=== PATIENT | female | born 1955 | race Caucasian/White ===

== ENCOUNTER 2017-07-20 07:58 | Outpatient (RCR) | payer BC | END 2017-07-24 | LOC: OT 07:58 | PROVIDERS: ATTEND Specialist | DX: S62.644D Nondisplaced fracture of proximal phalanx of right ring finger, subsequent encounter for fracture with routine healing (principal); S52.551D Other extraarticular fracture of lower end of right radius, subsequent encounter for closed fracture with routine healing | CPT/HCPCS: 97139 ==

== ENCOUNTER 2017-08-04 08:00 | Outpatient (RCR) | payer BC | END 2017-08-24 | LOC: OT 08:00 | PROVIDERS: ATTEND Specialist | DX: S62.644D Nondisplaced fracture of proximal phalanx of right ring finger, subsequent encounter for fracture with routine healing (principal); S52.551D Other extraarticular fracture of lower end of right radius, subsequent encounter for closed fracture with routine healing; M25.531 Pain in right wrist; M25.631 Stiffness of right wrist, not elsewhere classified; M79.641 Pain in right hand; M25.641 Stiffness of right hand, not elsewhere classified | CPT/HCPCS: 97139 ==